=== PATIENT | male | born 1955 | race Caucasian/White ===

== ENCOUNTER 2016-09-04 21:53 | Inpatient (IN) ==
[2016-09-04] MEDS ORDERED: 0.9 % Sodium Chloride 1,000 ML IVC ONE (22:25)
--- NOTE | 2016-09-04 22:32 | Emergency Department Note ---
Disposition Clinical Impression: Lower gastrointestinal hemorrhage, Coagulopathy Anemia Qualifiers: Anemia type: other cause Other causes of anemia: other cause, not classified Qualified Code(s): D64.89 - Other specified anemias Disposition: Admitted As Inpatient Condition: Good Referrals: Speedy Dickerson MD [Primary Care Provider] - Forms: ED Satisfaction Letter Time of Disposition: 00:10 General Adult HPI - General Chief complaint: ED GI Bleed Stated complaint: "Blood in Stool/Dizzy" Time Seen by Provider: 09/04/16 22:14 Source: patient Limitations: no limitations Nursing Notes Reviewed: Yes Vital Signs Reviewed: Yes - History of Present Illness HPI Narrative: Three-day history of red blood per rectum. He said he has been seen by his primary care physician and have blood work done this morning however he just feels very weak and is short of breath he came into the emergency department. Pain Scale: 0 - Related Data Allergies Allergy/AdvReac Type Severity Reaction Status Date / Time No Known Allergies Allergy Verified 09/04/16 22:02 All systems ED: reviewed and negative except as stated. Constitutional: Reports: weakness. Denies: fever, chills Eyes: Denies: eye pain ENT ED: Denies: throat pain, congestion, dysphagia Cardiovascular: Denies: chest pain, palpitations, syncope Respiratory: Reports: dyspnea. Denies: cough, wheezes Gastrointestinal: Reports: diarrhea (Since Saturday), melena (Since Saturday), hematochezia (Since Saturday). Denies: abdominal pain, nausea, vomiting, hematemesis Genitourinary: Denies: urgency, dysuria, frequency, hematuria Musculoskeletal: Denies: back pain, neck pain Integumentary: Denies: rash, abrasion Neurological: Denies: headache, weakness Endocrine: Reports: fatigue Past Medical History - Past Medical History Medical history: Reports: cancer, diabetes, hyperlipidemia, hypertension Psychiatric history: Reports: no psych history - Social History Smoking Status: Current every day smoker Smokeless Tobacco Status: No Alcohol use: Reports: rarely Drug use: Reports: none Physical Exam - General Limitations: no limitations General appearance: alert, in no apparent distress - Head Head exam: atraumatic, normocephalic, normal inspection - Eye Eye exam: Present: normal appearance, PERRL, EOMI - ENT ENT exam: normal exam, normal oropharynx, mucous membranes moist - Neck Neck exam: Present: normal inspection, full ROM, trachea midline. Absent: tenderness, meningismus - Chest Chest inspection: Present: normal inspection, symmetric chest wall rise - Respiratory Respiratory exam: Present: normal lung sounds bilaterally. Absent: respiratory distress - Cardiovascular Cardiovascular exam: Present: normal rhythm, tachycardia, normal heart sounds - Abdominal Exam Abdominal exam: Present: soft, tenderness (To palpation of left lower quadrant.) , normal bowel sounds. Absent: distention, guarding, rebound, rigidity, organomegaly - Extremities Exam Extremities exam: Present: normal inspection, full ROM, normal capillary refill. Absent: tenderness, pedal edema - Back Exam Back exam: Present: normal inspection, full ROM. Absent: tenderness, CVA tenderness (R), CVA tenderness (L) - Neurological Exam Neurological exam: Present: alert, oriented X3 - Psychiatric Psychiatric exam: Present: normal affect, normal mood - Skin Skin exam: Present: warm, dry, intact, pallor Course Course Narrative: Male patient lying in bed in no apparent distress but is pale in color. He is tachycardic on arrival here. He states since Saturday he has had bright red blood per his rectum. He sometimes describes this as dark in color and he states that it is a loose stool. He was seen at his primary care physician yesterday and had blood work drawn drawn this morning. His hemoglobin this morning was 8 subsequently here it is 6. He denies any abdominal pain but does have pain whenever I palpate his left lower quadrant. He has bright red blood per rectum on his rectal exam. He denies any nausea or vomiting. He denies any fevers. He states he is not on any type of anticoagulation. However his INR is significantly increased. We will give patient 2 units of blood and per hospitalist recommendation we will also give 2 units of FFP. Will also give patient vitamin K. We will admit patient for his rectal bleeding as well as his significant anemia. He expresses understanding of this. - Consultations Consultation #1: Dr Johnson accepeted Pt. He stated that we need to call surgery field operations supervisor to make them aware of the Pt. Time: 00:32 Consultation #2: Spoke with Dr Atkins. She is understanding of the Pt admission. Time: 00:35 Vital Signs Temperature 97.7 F 09/04/16 22:02 Pulse Rate 116 09/04/16 22:02 Respiratory Rate 14 09/04/16 22:02 Blood Pressure 113/65 09/04/16 22:02 O2 Sat by Pulse Oximetry 96 09/04/16 22:02 Temperature 97.7 F 09/04/16 22:02 Pulse Rate 116 09/04/16 22:02 Respiratory Rate 14 09/04/16 22:02 Blood Pressure 113/65 09/04/16 22:02 O2 Sat by Pulse Oximetry 96 09/04/16 22:02 Oxygen Delivery Oxygen Delivery Room Air Medical Decision Making - Medical Records Medical records reviewed: Yes I reviewed the patient's medical records. - Lab Data Lab results reviewed: Yes I reviewed the patient's lab results. Result diagrams: 09/04/16 22:35 09/04/16 22:35 Lab Results 09/04/16 09/04/16 09/04/16 Range/Units 22:30 22:35 22:35 WBC 7.4 (4.3-11.1) K/mcL RBC 2.11 L (4.19-5.50) M/mcL Hgb 6.7 L D (12.9-16.9) g/dL Hct 19.5 L (37.5-50.1) % MCV 92.4 (83.0-100.0) fL MCH 31.8 (28.0-33.3) pg MCHC 34.4 (31.6-35.5) g/dL RDW 13.2 (11.5-14.5) % Plt Count 218 (140-400) K/mcL MPV 8.7 L (9.4-12.4) fL Immature Gran % 0.8 (0-4) % Seg Neutrophils % 78.6 % Lymphocytes % 12.7 % Monocytes % 6.7 % Eosinophils % 0.8 % Basophils % 0.4 % Neutrophils # 5.8 (1.6-8.9) K/mcL Lymphocytes # 0.9 (0.6-4.6) K/mcL Monocytes # 0.5 (0.0-1.3) K/mcL Eosinophils # 0.1 (0.0-0.6) K/mcL Basophils # 0.0 (0.0-0.2) K/mcL Immature Plt Fraction 1.4 (1.1-6.1) % PT 134.1 H* (9.4-12.1) Seconds INR 11.5 H* APTT 73.5 H (26.0-36.0) Seconds Sodium (136-145) mEq/L Potassium (3.5-4.5) mEq/L Chloride (98-109) mEq/L Carbon Dioxide (19-29) mEq/L BUN (8-26) mg/dL Creatinine (0.72-1.25) mg/dL Est GFR ( Amer) (> 60) Est GFR (Non-Af Amer) (> 60) BUN/Creatinine Ratio (6-26) Glucose (70-99) mg/dL Calculated Osmolality (280-300) Calcium (8.6-10.8) mg/dL Phosphorus (2.3-4.7) mg/dL Magnesium (1.6-2.6) mg/dL Total Bilirubin 0.2 (0.2-1.2) mg/dL Direct Bilirubin 0.1 (0.0-0.5) mg/dL Indirect Bilirubin 0.1 (0.0-1.2) mg/dL AST 18 (5-34) Units/L ALT 15 (0-55) Units/L Alkaline Phosphatase 27 L (38-126) Units/L Troponin I (0-0.03) ng/mL Serum Total Protein 5.3 L (6.0-8.3) g/dL Albumin 3.4 L (3.5-5.0) g/dL Globulin 1.9 L (2.4-3.5) g/dL Albumin/Globulin Ratio 1.8 (1.1-2.2) Stool Occult Blood (Negative) Blood Type Antibody Screen Crossmatch 09/04/16 09/04/16 09/04/16 Range/Units 22:35 22:35 22:35 WBC (4.3-11.1) K/mcL RBC (4.19-5.50) M/mcL Hgb (12.9-16.9) g/dL Hct (37.5-50.1) % MCV (83.0-100.0) fL MCH (28.0-33.3) pg MCHC (31.6-35.5) g/dL RDW (11.5-14.5) % Plt Count (140-400) K/mcL MPV (9.4-12.4) fL Immature Gran % (0-4) % Seg Neutrophils % % Lymphocytes % % Monocytes % % Eosinophils % % Basophils % % Neutrophils # (1.6-8.9) K/mcL Lymphocytes # (0.6-4.6) K/mcL Monocytes # (0.0-1.3) K/mcL Eosinophils # (0.0-0.6) K/mcL Basophils # (0.0-0.2) K/mcL Immature Plt Fraction (1.1-6.1) % PT (9.4-12.1) Seconds INR APTT (26.0-36.0) Seconds Sodium 138 (136-145) mEq/L Potassium 4.0 (3.5-4.5) mEq/L Chloride 108 (98-109) mEq/L Carbon Dioxide 22 (19-29) mEq/L BUN 19 (8-26) mg/dL Creatinine 0.95 (0.72-1.25) mg/dL Est GFR ( Amer) > 60 (> 60) Est GFR (Non-Af Amer) > 60 (> 60) BUN/Creatinine Ratio 20 (6-26) Glucose 240 H (70-99) mg/dL Calculated Osmolality 296 (280-300) Calcium 7.9 L (8.6-10.8) mg/dL Phosphorus 1.8 L (2.3-4.7) mg/dL Magnesium 1.7 (1.6-2.6) mg/dL Total Bilirubin (0.2-1.2) mg/dL Direct Bilirubin (0.0-0.5) mg/dL Indirect Bilirubin (0.0-1.2) mg/dL AST (5-34) Units/L ALT (0-55) Units/L Alkaline Phosphatase (38-126) Units/L Troponin I 0.00 (0-0.03) ng/mL Serum Total Protein (6.0-8.3) g/dL Albumin (3.5-5.0) g/dL Globulin (2.4-3.5) g/dL Albumin/Globulin Ratio (1.1-2.2) Stool Occult Blood (Negative) Blood Type A POSITIVE Antibody Screen NEGATIVE Crossmatch See Detail 09/04/16 09/04/16 Range/Units 23:20 23:20 WBC (4.3-11.1) K/mcL RBC (4.19-5.50) M/mcL Hgb (12.9-16.9) g/dL Hct (37.5-50.1) % MCV (83.0-100.0) fL MCH (28.0-33.3) pg MCHC (31.6-35.5) g/dL RDW (11.5-14.5) % Plt Count (140-400) K/mcL MPV (9.4-12.4) fL Immature Gran % (0-4) % Seg Neutrophils % % Lymphocytes % % Monocytes % % Eosinophils % % Basophils % % Neutrophils # (1.6-8.9) K/mcL Lymphocytes # (0.6-4.6) K/mcL Monocytes # (0.0-1.3) K/mcL Eosinophils # (0.0-0.6) K/mcL Basophils # (0.0-0.2) K/mcL Immature Plt Fraction (1.1-6.1) % PT 141.3 H* (9.4-12.1) Seconds INR 12.1 H* APTT (26.0-36.0) Seconds Sodium (136-145) mEq/L Potassium (3.5-4.5) mEq/L Chloride (98-109) mEq/L Carbon Dioxide (19-29) mEq/L BUN (8-26) mg/dL Creatinine (0.72-1.25) mg/dL Est GFR ( Amer) (> 60) Est GFR (Non-Af Amer) (> 60) BUN/Creatinine Ratio (6-26) Glucose (70-99) mg/dL Calculated Osmolality (280-300) Calcium (8.6-10.8) mg/dL Phosphorus (2.3-4.7) mg/dL Magnesium (1.6-2.6) mg/dL Total Bilirubin (0.2-1.2) mg/dL Direct Bilirubin (0.0-0.5) mg/dL Indirect Bilirubin (0.0-1.2) mg/dL AST (5-34) Units/L ALT (0-55) Units/L Alkaline Phosphatase (38-126) Units/L Troponin I (0-0.03) ng/mL Serum Total Protein (6.0-8.3) g/dL Albumin (3.5-5.0) g/dL Globulin (2.4-3.5) g/dL Albumin/Globulin Ratio (1.1-2.2) Stool Occult Blood Positive A (Negative) Blood Type Antibody Screen Crossmatch - Radiology Data Radiology results reviewed: Yes I reviewed the patient's radiology results. Abdomen/Pelvis CT 09/04/16 22:32 IMPRESSION: 1. Diverticulosis without scan evidence for diverticulitis. 2. Grossly stable heterogeneous mass projecting anteriorly from the right kidney. 3. 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 D/ / Billy Houston MD / Billy Houston MD Interpreting Provider: Billy Houston MD - EKG Data EKG #1 EKG attestation: Yes I reviewed and interpreted this EKG. EKG results narrative: Sinus tachycardia at a rate of 109. [place] interval is 123. QRS duration is 76. QT is 327. QTC is 391. No signs of acute ischemia. No significant changes from previous EKG dated 10/28/2014. Critical Care Time Total Critical Care Time: 35 Attestation: The high probability of a clinically significant, sudden or life threatening deterioration of the [GI/heme] system(s) required my full and direct attention, intervention and personal management. The aggregate critical care time was [35] minutes. This time is in addition to time spent performing reported procedures but includes the following: [X] Data Review and interpretation [X] Patient assessment and monitoring of vital signs [X] Documentation [X] Medication orders and management Attestation Statement - Attestation Attestation: I personally interviewed and examined this patient and my medical decision- making was reviewed and discussed with the ED Resident Physician, Dr. De Guzman. I agree with the documented findings, disposition and treatment plan as described in the documentation. Patient is a 61-year-old white male who presents to the emergency department with generalized weakness, lightheadedness, and blood in his stool. Patient states he first noticed blood in his stool on Saturday over the weekend associated with a loose bowel movement. Patient describes initial stool changes as dark blood somewhat dark red in color. Patient was not having any other associated symptoms on Saturday with this, denies any abdominal pain or cramping, no fevers or chills, no nausea vomiting, no lightheadedness or weakness. Symptoms continued throughout the weekend with gradual increase in stool output with more diarrhea associated stools which are grossly bloody. Patient was seen on Saturday morning by his family doctor for these changes and had labs is on an outpatient basis ordered which were performed this morning. He was also told that he would be referred to Dr. Gar, for GI evaluation of lower GI bleeding. Patient states he has never contacted by Dr. Alexis's office up to this point and was feeling worse and over the past 12 hours has had gradually worsening lightheadedness with standing overall weakness and fatigue and skin very pale. She denies any chest pain or pressure no shortness of breath no syncopal episodes at home. Patient arrives with tachycardia at rest but stable blood pressure. No evidence of hypoxia or dyspnea. He is placed on a monitor IV saline was established and patient given a fluid bolus on arrival with 2 large-bore IV placed. Labs were drawn and sent and upon review in the system we did find his labs are drawn earlier today showing hemoglobin of 8.7. No prior history of any GI bleeding in the past last had a colonoscopy 6 years ago which was negative for any abnormal findings and this was more of a screening colonoscopy area she is not on any blood thinners. Patient however had any history of GI bleeding or need to see GI in the past. Repeat H&H here shows hemoglobin of 6.7, type and cross was ordered for 2 units to be transfused in the ED, patient consented to this at bedside. I did personally review pros and cons of transfusion and patient does agree to go ahead with transfusion here in the ED. Currently we are awaiting remainder of labs and CT imaging and patient will be admitted for lower GI bleeding Patient found to be coagulopathic with an INR of 12. Patient is not on any blood thinners. Unclear to the etiology of his elevated INR. We initiated vitamin K here in the emergency department and will discuss whether the admitting physician would like any additional medications administered for his elevated INR. Patient remains he was chemically stable with stable blood pressure. He is receiving 2 units packed red blood cells at bedside. Transfusion is without difficulty. Patient will be admitted for further evaluation for lower GI bleeding, coagulopathy, and anemia secondary to blood loss.
[2016-09-04 22:45] LABS: Basophils % 0.4 %; Eosinophils # 0.1 K/mcL (0.0-0.6); Eosinophils % 0.8 %; Hematocrit 19.5 % (37.5-50.1); Immature Granulocytes % 0.8 % (0-4); Immature Platelets 1.4 % (1.1-6.1); Lymphocytes # 0.9 K/mcL (0.6-4.6); Lymphocytes % 12.7 %; Mean Corpuscular HGB Conc 34.4 g/dL (31.6-35.5); Mean Corpuscular Hemoglobin 31.8 pg (28.0-33.3); Mean Corpuscular Volume 92.4 fL (83.0-100.0); Mean Platelet Volume 8.7 fL (9.4-12.4); Monocytes # 0.5 K/mcL (0.0-1.3); Monocytes % 6.7 %; Neutrophils # 5.8 K/mcL (1.6-8.9); Platelet Count 218 K/mcL (140-400); Red Blood Count 2.11 M/mcL (4.19-5.50); Red Cell Distribution Width 13.2 % (11.5-14.5); Segmented Neutrophils % 78.6 %
[2016-09-04 22:46] LABS: Hemoglobin 6.7 g/dL (12.9-16.9)
[2016-09-04 22:53] LABS: Activated Partial Thrombo Time 73.5 Seconds (26.0-36.0)
[2016-09-04 23:02] LABS: Blood Urea Nitrogen 19 mg/dL (8-26); Chloride 108 mEq/L (98-109); Phosphorous 1.8 mg/dL (2.3-4.7); Sodium 138 mEq/L (136-145)
[2016-09-04 23:04] LABS: INR 11.5; Prothrombin Time 134.1 Seconds (9.4-12.1)
[2016-09-04 23:15] LABS: BUN/Creatinine Ratio 20 (6-26); Calcium 7.9 mg/dL (8.6-10.8); Carbon Dioxide 22 mEq/L (19-29); Glucose 240 mg/dL (70-99); Osmolality,Calculated 296 (280-300); eGFR For African Americans > 60 (> 60); eGFR For Non-African Americans > 60 (> 60)
[2016-09-04 23:16] LABS: Magnesium 1.7 mg/dL (1.6-2.6)
[2016-09-04 23:30] LABS: Albumin 3.4 g/dL (3.5-5.0); Albumin/Globulin Ratio 1.8 (1.1-2.2); Bilirubin,Direct 0.1 mg/dL (0.0-0.5); Bilirubin,Indirect 0.1 mg/dL (0.0-1.2); Bilirubin,Total 0.2 mg/dL (0.2-1.2); Globulin 1.9 g/dL (2.4-3.5); Total Protein 5.3 g/dL (6.0-8.3)
[2016-09-04 23:50] LABS: Prothrombin Time 141.3 Seconds (9.4-12.1)
[2016-09-04 23:51] LABS: INR 12.1
[2016-09-05] MEDS ORDERED: 0.9 % Sodium Chloride 250 ML ONE ×4 (02:31→22:09)
[2016-09-05] MEDS ORDERED: Naloxone 0.4 MG/ML INJ IVP PRN (02:50)
[2016-09-05] MEDS ORDERED: *HR* Phytonadione 5 MG TABLET PO STA (03:00)
--- NOTE | 2016-09-05 03:07 | Internal Med History&Physical ---
Date of Encounter: 09/05/16 Time of Encounter: 03:07 Assessment and Plan (1) Hematochezia Current visit: Yes Status: Acute Suspected to be due to diverticular bleed. Patient has coagulopathy with elevated PT and PTT. Patient denies using any anticoagulant medication at home. Will correct the coagulopathy with vitamin K and FFP. Consult Dr Atkins, for possible colonoscopy (2) Acute blood loss anemia Current visit: Yes Status: Acute Pt has hemoglobin 6.7 (8.3 this morning and base line of 14-15 in the past). 2 units of PRBC transfusion ordered. Monitor H&H and transfuse to keep H&H at or above 8&24. (3) Coagulopathy Current visit: Yes Status: Acute Pt is not known to be on anticoagulation, but PT and PTT are elevated. Correct with vitamin K and FFP. Hematology / oncology consultation (4) Diabetes mellitus Current visit: Yes Status: Acute Hold metformin. Start sliding scale insulin Qualifiers: Diabetes mellitus type: type 2 Diabetes mellitus complication status: with unspecified complications Diabetes mellitus alf insulin use: without terminal operator use Qualified Code(s): E11.8 - Type 2 diabetes mellitus with unspecified complications (5) Hypertension Current visit: Yes Status: Chronic Continue home medications Qualifiers: Hypertension type: essential hypertension Qualified Code(s): I10 - Essential (primary) hypertension (6) Nicotine dependence Current visit: Yes Status: Acute Pt does not want nicotine patches at this time. wllling to quit Qualifiers: Nicotine product type: cigarettes Substance use status: unspecified nicotine-induced disorder Qualified Code(s): F17.219 - Nicotine dependence, cigarettes, with unspecified nicotine-induced disorders Internal Medicine - H&P: HPI Chief complaint: Rectal bleeding Admitted From: Emergency Dept Plans for Post Hospital Care: Home History of present illness: Mr. Dasilva is a 61 year old male past medical history significant for hypertension, diabetes, hyperlipidemia, neck cancer status post chemotherapy radiation. He presents to the emergency department with four-day history of rectal bleeding. Initially started as dark blood and subsequently had the bright red blood per rectum. Multiple times during the day, not associated with stool. Denies blood clots. Reports feeling dizzy and lightheaded when he is sitting or standing. No history of loss of consciousness. He reports some heavy breathing. Denies chest pain. No nausea, vomiting, abdominal pain, cough, expectoration, fever, chills. He denies dysuria or hematuria. He was evaluated in the emergency department and was noted to have INR of 12.5 (denies using anticoagulants), hemoglobin 6.7 (8.3 this morning and base line of 14-15 in the past). ER physician discussed with surgeon Dr Atkins and admitted to the hospitalist service for further w/u and management. Pt apparently had colonoscopy about 5 years ago which showed polyps Past Med Surg Social Fam HX - Past Medical History Medical history: cancer, diabetes, hyperlipidemia, hypertension Psychiatric history: no psych history - Social History Smoking Status: Current every day smoker Smokeless Tobacco Status: No Alcohol use: occasionally Drug use: none - Family History Father Name: Sriram Dasilva Living Status: Age at : 77 Hx Family Cardiac Disorders: No Hx Family Respiratory Disorders: No Hx Family Cancer: No Hx Family GI Disorders: No Hx Family Genitourinary Disorders: Yes Hx Family Endocrine Disorder: No Hx Family Musculoskeletal Disorders: No Hx Family Neuromuscular Disorders: No Hx Family Neurologic Disorders: No Hx Family HEENT Disorders: No Hx Family Autoimmune Disorders: No Hx Family Reproductive Disorders: No Hx Family Psychosocial Disorders: No Hx Family Medical Disorders: No Internal Medicine - H&P: Meds Alprazolam [Xanax 0.5 MG Tablet] 0.5 mg PO QID PRN 09/05/16 [History] Fenofibrate Nanocrystallized [Fenofibrate] 145 mg PO DAILY 09/05/16 [History] Gabapentin [Gabapentin] 900 mg PO TID 09/05/16 [History] HYDROcodone/Acet 5/325 mg [[place] 5-325 mg] 1 - 2 tab PO Q6H PRN 09/05/16 [ History] Lisinopril [Zestril] 10 mg PO DAILY 09/05/16 [History] Loratadine [Allergy Relief] 10 mg PO DAILY 09/05/16 [History] Metformin HCl [Metformin HCl ER] 1,500 mg PO DAILY 09/05/16 [History] Omeprazole [PriLOSEC] 20 mg PO DAILY 09/05/16 [History] Simvastatin [Simvastatin] 80 mg PO DAILY 09/05/16 [History] Tamsulosin [Flomax] 0.4 mg PO DAILY 09/05/16 [History] TraZODone 100 mg PO HS 09/05/16 [History] Allergies No Known Allergies Allergy (Verified 09/04/16 22:02) All Systems PM: A 10-system review of systems was performed and is negative for pertinent findings except as documented above in the HPI. - Constitutional Vitals: Temp Pulse Resp BP Pulse Ox 97.8 F 108 19 121/73 100 09/05/16 02:32 09/05/16 02:32 09/05/16 02:32 09/05/16 02:32 09/05/16 02:32 Exam: General: Not in acute distress at the time of my evaluation HEENT: Oral mucosa is moist. conjunctival palor present. No scleral icterus Neck: No obvious neck swellings Lungs: Clear to auscultation Cardiac: Regular rate and rhythm. No significant murmurs Abdomen: Soft, non tender. Bowel sounds present Genitourinary: No holm catheter Neurological: Alert and oriented. No gross localizing deficits Psych: Not aggressive or agitated Extremities: no significant leg edema Skin: No generalized rash Internal Med - H&P Results - Labs CBC & Chem 7: 09/04/16 22:35 09/04/16 22:35 - Impressions ITS Impressions Abdomen/Pelvis CT 09/04/16 22:32 IMPRESSION: 1. Diverticulosis without scan evidence for diverticulitis. 2. Grossly stable heterogeneous mass projecting anteriorly from the right kidney. 3. 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 D/ / Billy Houston MD / Billy Houston MD Interpreting Provider: Billy Houston MD
[2016-09-05] MEDS: traZODone 50 MG TABLET PO SCH ×2 (03:15→21:07)
[2016-09-05] MEDS ORDERED: 0.9 % Sodium Chloride 500 ML ONE (05:38)
[2016-09-05] MEDS ORDERED: *HR* HYDROcodone/Acet 5/325 mg TABLET PO PRN (08:09)
[2016-09-05] MEDS ORDERED: *HR* Dextrose 50 % in Water (Syg) 50 ML SYRINGE IVP PRN (08:12)
[2016-09-05] MEDS ORDERED: D5% in Water 1,000 ML IV PRN (08:12)
[2016-09-05] MEDS ORDERED: Dextrose Gel 15 GM PO PRN ×2 (08:12)
--- NOTE | 2016-09-05 08:19 | General Surgery Consult Note ---
<Jim Hernandez - Last Filed: 09/05/16 11:54> Date of Encounter: 09/05/16 Time of Encounter: 07:20 Assessment and Plan (1) Hematochezia Current Visit: Yes Status: Acute CT demonstrated diverticulosis without evidence of diverticulitis. Repeat INR was 1.8 Clear liquids with NPO at midnight. Miralax prep ordered. Colonoscopy tomorrow given the prep is adequate. (2) Coagulopathy Current Visit: Yes Status: Acute Patient denies use of anticoagulants. Management per medicine team. Heme onc consulted. (3) Acute blood loss anemia Current Visit: Yes Status: Acute Management per medicine team. 2 units PRBCs ordered. Continue to follow H/H closely. 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 The patient reports that he started having dark black stools that were somewhat loose starting this past 09/01/16. He reports having multiple bowel movements that were quite large similar in description to this in the following days, which progressed to bright red blood starting on Saturday09/03/16. The patient has associated dizziness and fatigue since the onset of these symptoms. He denies any history of similar episodes and has never had problems with bleeding in the past. He denies easy bruisability, and states he has never been on blood thinners. He additionally states he does not even take aspirin. His INR was found to be 12.1 while in the emergency department and he had a hemoglobin as low as 6.7. He has no history of anemia. The patient reports that he has been diagnosed with hepatitis B, which was confirmed with outpatient records. He states he continues to drink alcohol with 3-4 drinks of beer, which he will have approximately 2 times a week. He has had one colonoscopy a little over 5 years ago, which did not demonstrate any bleeding at that time, but he did have some polyps. He has never had an EGD. Past Med Surg Social Fam HX - Past Medical History Medical history: cancer (lymph node in neck), diabetes, hepatitis (B), hyperlipidemia, hypertension Psychiatric history: no psych history - Past Surgical History Surgical History: cancer surgery (Lymph node removal from the neck), other (PEG tube placement, tonsillectomy) - Social History Smoking Status: Current every day smoker Smokeless Tobacco Status: No Alcohol use: occasionally Drug use: marijuana - Family History Father Name: Sriram Dasilva Living Status: Age at : 77 Hx Family Cardiac Disorders: No Hx Family Respiratory Disorders: No Hx Family Cancer: No Hx Family GI Disorders: No Hx Family Genitourinary Disorders: Yes Hx Family Endocrine Disorder: No Hx Family Musculoskeletal Disorders: No Hx Family Neuromuscular Disorders: No Hx Family Neurologic Disorders: No Hx Family HEENT Disorders: No Hx Family Autoimmune Disorders: No Hx Family Reproductive Disorders: No Hx Family Psychosocial Disorders: No Hx Family Medical Disorders: No Medications and Allergies Alprazolam [Xanax 0.5 MG Tablet] 0.5 mg PO QID PRN 09/05/16 [History] Fenofibrate Nanocrystallized [Fenofibrate] 145 mg PO DAILY 09/05/16 [History] Gabapentin [Gabapentin] 900 mg PO TID 09/05/16 [History] HYDROcodone/Acet 5/325 mg [[place] 5-325 mg] 1 - 2 tab PO Q6H PRN 09/05/16 [ History] Lisinopril [Zestril] 10 mg PO DAILY 09/05/16 [History] Loratadine [Allergy Relief] 10 mg PO DAILY 09/05/16 [History] Metformin HCl [Metformin HCl ER] 1,500 mg PO DAILY 09/05/16 [History] Omeprazole [PriLOSEC] 20 mg PO DAILY 09/05/16 [History] Simvastatin [Simvastatin] 80 mg PO DAILY 09/05/16 [History] Tamsulosin [Flomax] 0.4 mg PO DAILY 09/05/16 [History] TraZODone 100 mg PO HS 09/05/16 [History] Allergies No Known Allergies Allergy (Verified 09/04/16 22:02) Review of Systems All systems PM: A 10-system review of systems was performed and is negative for pertinent findings except as documented above in the HPI. - Constitutional fatigue, no anorexia, no fever(s), no weakness - EENT Nose, mouth and throat: dizziness, no epistaxis, no headache(s), no sore throat - Cardiovascular no chest pain, no dyspnea, no edema, no syncope - Respiratory no cough, no dyspnea, no hemoptysis - Gastrointestinal hematochezia, melena, no abdominal pain, no constipation, no heartburn, no hematemesis, no nausea, no vomiting - Genitourinary no dysuria, no hematuria - Musculoskeletal neck pain (chronic, spasms), no numbness, no tingling - Integumentary no unusual bruising, no jaundice - Neurological dizziness, no focal weakness, no headache(s), no tingling - Hematologic/Lymphatic no easy bleeding, no easy bruising General Surgery Exam Initial Vital Signs Temp Pulse Resp BP Pulse Ox 97.7 F 116 14 113/65 96 09/04/16 22:02 09/04/16 22:02 09/04/16 22:02 09/04/16 22:02 09/04/16 22:02 - General physical appearance well developed, well nourished, no distress. negative: jaundice - Eyes normal ocular movement - ENT normal mucosa, atraumatic, normocephalic - Neck no masses, trachea midline, no lymphadectomy - Respiratory normal respiratory effort, clear to auscultation - Cardiovascular Cardiovascular exam: Present: RRR, tachycardia, no murmurs/rubs/gallops - Abdomen Abdomen general surgery: Present: bowel sounds present, soft, non tender. Absent: distended - Integumentary Integumentary general surgery: Present: warm and dry - Neurologic Present: CN 2-12 grossly intact - Musculoskeletal Present: normal posture - Psychiatric Psychiatric general surgery: Present: appropriate, oriented to person, oriented to place, oriented to time, speech is normal, memory intact Exam Initial Vital Signs Temp Pulse Resp BP Pulse Ox 97.7 F 116 14 113/65 96 09/04/16 22:02 09/04/16 22:02 09/04/16 22:02 09/04/16 22:02 09/04/16 22:02 Results - Labs 09/05/16 09:59 09/05/16 09:59 Abnormal lab results RBC 2.11 M/mcL (4.19-5.50) L 09/04/16 22:35 Hgb 6.7 g/dL (12.9-16.9) L D 03/07/17 22:35 Hct 19.5 % (37.5-50.1) L 09/04/16 22:35 MPV 8.7 fL (9.4-12.4) L 09/04/16 22:35 PT 141.3 Seconds (9.4-12.1) H* 09/04/16 23:20 INR 12.1 H* 09/04/16 23:20 APTT 73.5 Seconds (26.0-36.0) H 09/04/16 22:35 Glucose 240 mg/dL (70-99) H 09/04/16 22:35 POC Glucose 193 (58-89) H 09/05/16 02:59 Calcium 7.9 mg/dL (8.6-10.8) L 09/04/16 22:35 Phosphorus 1.8 mg/dL (2.3-4.7) L 09/04/16 22:35 Alkaline Phosphatase 27 Units/L (38-126) L 09/04/16 22:30 Serum Total Protein 5.3 g/dL (6.0-8.3) L 09/04/16 22:30 Albumin 3.4 g/dL (3.5-5.0) L 09/04/16 22:30 Globulin 1.9 g/dL (2.4-3.5) L 09/04/16 22:30 Stool Occult Blood Positive (Negative) A 09/04/16 23:20 All other labs normal. Consult Discharge Plan - Plan Referrals: Speedy Dickerson MD [Primary Care Provider] - (SENT WEB REQUEST ON 09-05-16 @ [id number]) - Attending Attestation I examined this patient and my medical decision-making was reviewed with the SUPPLY CHAIN BUSINESS ANALYST/PA/Advanced Practice Nurse/Resident Physician. I agree with the documented findings, disposition and treatment plan as described except to the extent set forth below. <Jody Atkins - Last Filed: 09/06/16 17:28> Time of Encounter: 16:30 Assessment and Plan (1) Acute blood loss anemia Current Visit: Yes Status: Acute (2) Melena Current Visit: Yes Status: Acute discussed egd/colonoscopy with patient and they wish to proceed inr reversed Review of Systems All systems PM: A 10-system review of systems was performed and is negative for pertinent findings except as documented above in the HPI. General Surgery Exam Initial Vital Signs Temp Pulse Resp BP Pulse Ox 97.7 F 116 14 113/65 96 09/04/16 22:02 09/04/16 22:02 09/04/16 22:02 09/04/16 22:02 09/04/16 22:02 - General physical appearance well developed, well nourished, no distress, no pain - Eyes PERRL, normal ocular movement - ENT normal mucosa, normocephalic - Neck trachea midline - Respiratory normal expansion, clear to auscultation - Cardiovascular Cardiovascular exam: Present: RRR - Abdomen Abdomen general surgery: Present: bowel sounds present, soft, non tender - Integumentary Integumentary general surgery: Present: warm and dry, no abnormal pigmentation - Neurologic Present: CN 2-12 grossly intact - Musculoskeletal Present: normal gait, normal posture - Psychiatric Psychiatric general surgery: Present: A&Ox3, speech is normal Exam Initial Vital Signs Temp Pulse Resp BP Pulse Ox 97.7 F 116 14 113/65 96 09/04/16 22:02 09/04/16 22:02 09/04/16 22:02 09/04/16 22:02 09/04/16 22:02 Results - Labs 09/06/16 11:51 09/06/16 03:45 Abnormal lab results RBC 2.75 M/mcL (4.19-5.50) L 09/06/16 03:45 Hgb 10.1 g/dL (12.9-16.9) L D 09/06/16 11:51 Hct 30.3 % (37.5-50.1) L 09/06/16 11:51 MPV 8.7 fL (9.4-12.4) L 09/06/16 03:45 PT 20.2 Seconds (9.4-12.1) H 09/06/16 03:45 APTT 38.2 Seconds (26.0-36.0) H 09/05/16 09:59 Chloride 112 mEq/L (98-109) H 09/06/16 03:45 BUN 7 mg/dL (8-26) L 09/06/16 03:45 Glucose 129 mg/dL (70-99) H 09/06/16 03:45 POC Glucose 161 (58-89) H 09/05/16 22:14 Calcium 7.6 mg/dL (8.6-10.8) L 09/06/16 03:45 Phosphorus 2.1 mg/dL (2.3-4.7) L 09/06/16 03:45 Alkaline Phosphatase 27 Units/L (38-126) L 09/04/16 22:30 Serum Total Protein 5.3 g/dL (6.0-8.3) L 09/04/16 22:30 Albumin 3.4 g/dL (3.5-5.0) L 09/04/16 22:30 Globulin 1.9 g/dL (2.4-3.5) L 09/04/16 22:30 Stool Occult Blood Positive (Negative) A 09/05/16 07:45 Diabetes panel 09/06/16 Range/Units 03:45 Sodium 139 (136-145) mEq/L Potassium 3.9 (3.5-4.5) mEq/L Chloride 112 H (98-109) mEq/L Carbon Dioxide 25 (19-29) mEq/L BUN 7 L (8-26) mg/dL Creatinine 0.77 (0.72-1.25) mg/dL Glucose 129 H (70-99) mg/dL Calcium 7.6 L (8.6-10.8) mg/dL Calcium panel 09/06/16 Range/Units 03:45 Calcium 7.6 L (8.6-10.8) mg/dL Phosphorus 2.1 L (2.3-4.7) mg/dL Pituitary panel 09/06/16 Range/Units 03:45 Sodium 139 (136-145) mEq/L Potassium 3.9 (3.5-4.5) mEq/L Chloride 112 H (98-109) mEq/L Carbon Dioxide 25 (19-29) mEq/L BUN 7 L (8-26) mg/dL Creatinine 0.77 (0.72-1.25) mg/dL Glucose 129 H (70-99) mg/dL Calcium 7.6 L (8.6-10.8) mg/dL Adrenal panel 09/06/16 Range/Units 03:45 Sodium 139 (136-145) mEq/L Potassium 3.9 (3.5-4.5) mEq/L Chloride 112 H (98-109) mEq/L Carbon Dioxide 25 (19-29) mEq/L BUN 7 L (8-26) mg/dL Creatinine 0.77 (0.72-1.25) mg/dL Glucose 129 H (70-99) mg/dL Calcium 7.6 L (8.6-10.8) mg/dL All other labs normal. - Attending Attestation I examined this patient and my medical decision-making was reviewed with the SUPPLY CHAIN BUSINESS ANALYST/PA/Advanced Practice Nurse/Resident Physician. I agree with the documented findings, disposition and treatment plan as described except to the extent set forth below.
[2016-09-05] MEDS ORDERED: Fenofibrate 54 MG TABLET PO SCH (09:00)
[2016-09-05] MEDS: Insulin LISPRO 300 UNITS/3 ML VIAL SQ SCH ×4 (09:45→22:22)
[2016-09-05] MEDS ORDERED: Polyethylene Glycol 3350 255 GM POWDER PO ONE (09:47)
[2016-09-05] MEDS: Gabapentin 300 MG CAPSULE PO SCH ×3 (09:49→21:05)
[2016-09-05 10:07] LABS: Basophils % 0.4 %; Eosinophils % 0.6 %; Hematocrit 21.4 % (37.5-50.1); Hemoglobin 7.3 g/dL (12.9-16.9); Immature Granulocytes % 0.6 % (0-4); Lymphocytes # 1.3 K/mcL (0.6-4.6); Lymphocytes % 18.4 %; Mean Corpuscular HGB Conc 34.1 g/dL (31.6-35.5); Mean Corpuscular Hemoglobin 31.1 pg (28.0-33.3); Mean Corpuscular Volume 91.1 fL (83.0-100.0); Mean Platelet Volume 8.8 fL (9.4-12.4); Monocytes # 0.7 K/mcL (0.0-1.3); Monocytes % 9.6 %; Neutrophils # 5.1 K/mcL (1.6-8.9); Platelet Count 156 K/mcL (140-400); Red Blood Count 2.35 M/mcL (4.19-5.50); Red Cell Distribution Width 13.1 % (11.5-14.5); Segmented Neutrophils % 70.4 %
[2016-09-05 10:14] LABS: Activated Partial Thrombo Time 38.2 Seconds (26.0-36.0)
[2016-09-05 10:15] LABS: INR 1.8
[2016-09-05 10:19] LABS: BUN/Creatinine Ratio 15 (6-26); Blood Urea Nitrogen 12 mg/dL (8-26); Calcium 7.8 mg/dL (8.6-10.8); Carbon Dioxide 24 mEq/L (19-29); Chloride 110 mEq/L (98-109); Glucose 136 mg/dL (70-99); Magnesium 1.9 mg/dL (1.6-2.6); Osmolality,Calculated 290 (280-300); Phosphorous 1.9 mg/dL (2.3-4.7); Potassium 4.1 mEq/L (3.5-4.5); Sodium 139 mEq/L (136-145); eGFR For African Americans > 60 (> 60); eGFR For Non-African Americans > 60 (> 60)
[2016-09-05] MEDS: ALPRAZolam 0.5 MG TABLET PO PRN ×2 (11:44→22:21)
--- NOTE | 2016-09-05 11:53 | Internal Med Progress Note ---
Date of Encounter: 09/05/16 Time of Encounter: 11:50 - Assessment and plan (1) Hematochezia Current Visit: Yes Status: Acute Assessment and plan: Acute blood loss anemia secondary to hematochezia CT abdomen and pelvis shows diverticulosis without evidence of diverticulitis Repeat INR 1.8 Status post 3 units FFP transfusion Status post 2 unit RBC transfusion however active bleeding and persistently low hemoglobin, we will transfuse 2 more units PRBCs Continue to monitor H&H every 8 hours Surgery consultation appreciated Patient to undergo colonoscopy tomorrow, bowel prep initiated. Clear liquid diet today and nothing by mouth after midnight (2) Acute blood loss anemia Current Visit: Yes Status: Acute Assessment and plan: As listed above (3) Coagulopathy Current Visit: Yes Status: Acute Assessment and plan: Reversed status post 3 unit FFP transfusion Repeat INR 1.8 Patient will need further hematological workup, possibly as outpatient once acute issue has been resolved (4) Diabetes mellitus Current Visit: Yes Status: Acute Assessment and plan: Hold oral antihyperglycemic agents at this time Started insulin sliding scale algorithm Continue to monitor fingerstick glucose and blood glucose Qualifiers: Diabetes mellitus type: type 2 Diabetes mellitus complication status: with unspecified complications Diabetes mellitus terminal press operator insulin use: without terminal press operator use Qualified Code(s): E11.8 - Type 2 diabetes mellitus with unspecified complications (5) Hypertension Current Visit: Yes Status: Chronic Assessment and plan: BP within acceptable range Continue home medications Qualifiers: Hypertension type: essential hypertension Qualified Code(s): I10 - Essential (primary) hypertension (6) Tobacco abuse Current Visit: Yes Status: Acute Assessment and plan: Smoking cessation counseling provided Patient not ready to quit at this time Refused nicotine replacement therapy (7) BPH (benign prostatic hyperplasia) Current Visit: Yes Status: Chronic Assessment and plan: Continue home medications Qualifiers: Prostatic enlargement morphology: unspecified morphology Lower urinary tract symptom presence: presence of symptoms unspecified Qualified Code(s): N40.0 - Benign prostatic hyperplasia without lower urinary tract symptoms - Subjective Interval history: Patient is a 61-year-old male who is admitted for symptomatic anemia secondary to acute blood loss anemia/lower GI bleed. Patient seen and examined at bedside. Resting in bed and reports of having a recurrent episode of rectal bleed shortly before I evaluated the patient. Status post 2 unit PRBC transfusion however he continues to have active bleeding. States this episode first started about a week ago and has gradually worsened. Denies any shortness of breath or chest pain at this time. Patient is hemodynamically stable at this time. - Constitutional Vitals: Temp Pulse Resp BP Pulse Ox 98.3 F 80 16 128/72 99 09/05/16 08:35 09/05/16 08:35 09/05/16 08:35 09/05/16 08:35 09/05/16 08:35 General appearance: Present: cooperative, A&O X 3, no acute distress, obese, answers questions appropriately - Head Head exam: Present: atraumatic, normocephalic - Eye Eye exam: Present: normal appearance, conjuntiva pink, sclera anicteric - Respiratory Respiratory exam: Present: CTAB. Absent: respiratory distress, wheezes - Cardiovascular Cardiovascular exam: Present: RRR, +S1, +S2 - GI/Abdominal GI/Abdominal exam: Present: normal bowel sounds, soft. Absent: distended, tenderness - Extremities Exam Extremities exam: Present: warm, radial pulses palpable and symetrical. Absent : calf tenderness, pedal edema - Neurological Exam Neurological exam: Present: alert, oriented X3 - Psychiatric Psychiatric exam: Present: normal affect, normal mood Internal Medicine: Result - Labs CBC & Chem 7: 09/05/16 09:59 09/05/16 09:59 Labs: Short CBC 09/05/16 Range/Units 09:59 WBC 7.2 (4.3-11.1) K/mcL Hgb 7.3 L (12.9-16.9) g/dL Hct 21.4 L (37.5-50.1) % Plt Count 156 (140-400) K/mcL Neutrophils # 5.1 (1.6-8.9) K/mcL BMP 09/05/16 09:59 Sodium 139 Potassium 4.1 Chloride 110 H Carbon Dioxide 24 BUN 12 Creatinine 0.78 Glucose 136 H Calcium 7.8 L - ABG Interpretation ABG results: PT/INR, D-dimer PT 20.0 Seconds (9.4-12.1) H D 09/05/16 09:59 Consult Discharge Plan - Plan Referrals: Speedy Dickerson MD [Primary Care Provider] - (SENT WEB REQUEST ON 09-05-16 @ [id number])
[2016-09-05 12:52] LABS: Hematocrit 21.4 % (37.5-50.1); Hemoglobin 7.3 g/dL (12.9-16.9)
--- NOTE | 2016-09-05 13:52 | Electrocardiograph Report ---
[place] [id number] Test Date: 2016-09-04 Pat Name: Sriram Dasilva Department: [id number] Room: 2N13 Gender: M Technical Solutions Engineer: : [id number] Requested By: Ayana De Guzman Order Number: [id number] Reading MD: Bandar Schroeder MD Measurements Intervals [place] Rate: 109 P: 60 WY: 123 QRS: 39 QRSD: 76 T: 66 QT: 327 QTc: 391 Interpretive Statements SINUS TACHYCARDIA NONSPECIFIC T-WAVE ABNORMALITY Electronically Signed On 09-05-2016 13:50:56 EST by Bandar Schroeder MD
[2016-09-05] MEDS: *HR* HYDROcodone/Acet 5/325 mg TABLET PO PRN (18:33)
--- NOTE | 2016-09-05 18:44 | Oncology Inp Consult Note ---
Date of Encounter: 09/05/16 Time of Encounter: 17:00 Assessment and Plan (1) Coagulopathy Status: Acute Assessment and plan: Patient with anemia, without thrombocytopenia, prolonged PTT and PT and INR, fibrinogen, d-dimer is not available for review. Complained disposition deficiency likely due to liver disease, (AST ALT normal ? decreased synthetic function vs med/alcohol) history of hepatitis B, ? DIC/consumptive coagulopathy , platelets are normal fibrinogen results not available. Ordered d dimers/ fibrinogen levels. He is planned for a colonoscopy to identify any source of bleeding/malignancy INR 1.8, redose with vitamin K/ 2 units of FFP prior to procedure in a.m. Hx head and neck cancer in remission-last seen in onc 2014 Plan as noted above discussed with patient/caregiver in detail - Data of Consult Requesting Physician: Jeannie Pfeiffer MD Primary Care Provider: Speedy Dickerson MD - Consult Narrative Reason for consult: coagulopathy History of present illness: Mr. 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 He denied any prior similar episodes he had bright red blood denied any anticoagulant use, or new medication/[id number] intake. He uses alcohol 4 beers daily, history of hepatitis B, not taken any treatment. Patient had a INR of 12.5 PT more prolonged than PTT. He is scheduled for colonoscopy tomorrow. He is having bowel prep and continues to have bleeding. He is status post transfusion of red cells 3 units and plasma 2 units and vitamin K IV. He denies any epistaxis denies bruising no hematuria. He denies any abdominal pain. Past Med Surg Social Fam HX - Past Medical History Medical history: cancer (lymph node in neck), diabetes, hepatitis (B), hyperlipidemia, hypertension Psychiatric history: no psych history - Past Surgical History Surgical History: cancer surgery (Lymph node removal from the neck), other (PEG tube placement, tonsillectomy) - Social History Smoking Status: Current every day smoker Smokeless Tobacco Status: No Alcohol use: occasionally Drug use: marijuana - Family History Father Name: Sriram Dasilva Living Status: Age at : 77 Hx Family Cardiac Disorders: No Hx Family Respiratory Disorders: No Hx Family Cancer: No Hx Family GI Disorders: No Hx Family Genitourinary Disorders: Yes Hx Family Endocrine Disorder: No Hx Family Musculoskeletal Disorders: No Hx Family Neuromuscular Disorders: No Hx Family Neurologic Disorders: No Hx Family HEENT Disorders: No Hx Family Autoimmune Disorders: No Hx Family Reproductive Disorders: No Hx Family Psychosocial Disorders: No Hx Family Medical Disorders: No Medications and Allergies Alprazolam [Xanax 0.5 MG Tablet] 0.5 mg PO QID PRN 09/05/16 [History] Fenofibrate Nanocrystallized [Fenofibrate] 145 mg PO DAILY 09/05/16 [History] Gabapentin [Gabapentin] 900 mg PO TID 09/05/16 [History] HYDROcodone/Acet 5/325 mg [[place] 5-325 mg] 1 - 2 tab PO Q6H PRN 09/05/16 [ History] Lisinopril [Zestril] 10 mg PO DAILY 09/05/16 [History] Loratadine [Allergy Relief] 10 mg PO DAILY 09/05/16 [History] Metformin HCl [Metformin HCl ER] 1,500 mg PO DAILY 09/05/16 [History] Omeprazole [PriLOSEC] 20 mg PO DAILY 09/05/16 [History] Simvastatin [Simvastatin] 80 mg PO DAILY 09/05/16 [History] Tamsulosin [Flomax] 0.4 mg PO DAILY 09/05/16 [History] TraZODone 100 mg PO HS 09/05/16 [History] Allergies No Known Allergies Allergy (Verified 09/04/16 22:02) Review of systems: as in HPI otherwise negative Oncology - Exam - Constitutional Vitals: Temp Pulse Resp BP Pulse Ox 98.2 F 96 20 132/76 99 09/05/16 16:31 09/05/16 16:31 09/05/16 16:31 09/05/16 16:31 09/05/16 16:31 Exam: Well-built and acute distress HEENT atraumatic normocephalic no icterus. Neck no adenopathy Chest bilateral air entry clear. Cardio vascular as well as to regular Abdomen soft nontender distention, bowel sounds Neurologic alert awake oriented 3 no gross deficits Psych normal affect Extremities no lower extremity edema. Oncology - Results - Labs Labs: Short CBC 09/05/16 09/05/16 Range/Units 09:59 12:34 WBC 7.2 (4.3-11.1) K/mcL Hgb 7.3 L 7.3 L (12.9-16.9) g/dL Hct 21.4 L 21.4 L (37.5-50.1) % Plt Count 156 (140-400) K/mcL Neutrophils # 5.1 (1.6-8.9) K/mcL BMP 09/05/16 09:59 Sodium 139 Potassium 4.1 Chloride 110 H Carbon Dioxide 24 BUN 12 Creatinine 0.78 Glucose 136 H Calcium 7.8 L Consult Discharge Plan - Plan Referrals: Speedy Dickerson MD [Primary Care Provider] - (SENT WEB REQUEST ON 09-05-16 @ [phone])
[2016-09-05 20:03] LABS: Hematocrit 25.4 % (37.5-50.1); Hemoglobin 8.6 g/dL (12.9-16.9)
[2016-09-05] MEDS: Fenofibrate 54 MG TABLET PO SCH (21:06)
[2016-09-06 04:05] LABS: Basophils % 0.8 %; Eosinophils # 0.1 K/mcL (0.0-0.6); Eosinophils % 2.6 %; Hematocrit 24.9 % (37.5-50.1); Hemoglobin 8.5 g/dL (12.9-16.9); Immature Granulocytes % 0.4 % (0-4); Lymphocytes # 1.5 K/mcL (0.6-4.6); Lymphocytes % 29.9 %; Mean Corpuscular HGB Conc 34.1 g/dL (31.6-35.5); Mean Corpuscular Hemoglobin 30.9 pg (28.0-33.3); Mean Corpuscular Volume 90.5 fL (83.0-100.0); Mean Platelet Volume 8.7 fL (9.4-12.4); Monocytes # 0.5 K/mcL (0.0-1.3); Monocytes % 10.6 %; Neutrophils # 2.8 K/mcL (1.6-8.9); Platelet Count 147 K/mcL (140-400); Red Blood Count 2.75 M/mcL (4.19-5.50); Segmented Neutrophils % 55.7 %
[2016-09-06 04:11] LABS: BUN/Creatinine Ratio 9 (6-26); Blood Urea Nitrogen 7 mg/dL (8-26); Calcium 7.6 mg/dL (8.6-10.8); Carbon Dioxide 25 mEq/L (19-29); Chloride 112 mEq/L (98-109); Glucose 129 mg/dL (70-99); Magnesium 1.9 mg/dL (1.6-2.6); Osmolality,Calculated 288 (280-300); Phosphorous 2.1 mg/dL (2.3-4.7); Potassium 3.9 mEq/L (3.5-4.5); Sodium 139 mEq/L (136-145); eGFR For African Americans > 60 (> 60); eGFR For Non-African Americans > 60 (> 60)
[2016-09-06 04:15] LABS: INR 1.8; Prothrombin Time 20.2 Seconds (9.4-12.1)
[2016-09-06 04:26] LABS: Fibrinogen 188 mg/dL (169-393)
[2016-09-06 04:27] LABS: D-Dimer < 215 ng/mLFEU (0-500)
[2016-09-06] MEDS: Insulin LISPRO 300 UNITS/3 ML VIAL SQ SCH ×4 (08:41→20:05)
[2016-09-06] MEDS: Gabapentin 300 MG CAPSULE PO SCH ×3 (08:47→20:02)
[2016-09-06] MEDS: *HR* HYDROcodone/Acet 5/325 mg TABLET PO PRN ×2 (08:48→15:23)
--- NOTE | 2016-09-06 11:41 | Internal Med Progress Note ---
Date of Encounter: 09/06/16 Time of Encounter: 11:39 - Assessment and plan (1) Hematochezia Current Visit: Yes Status: Acute Assessment and plan: Acute blood loss anemia secondary to hematochezia CT abdomen and pelvis shows diverticulosis without evidence of diverticulitis Repeat INR 1.8 Status post 3 units FFP transfusion Status post 4unit PRBC transfusion Surgery consultation appreciated Patient to undergo colonoscopy later today Dietary recommendations as per surgery after colonoscopy H&H low but acceptable Continue to monitor H&H closely (2) Acute blood loss anemia Current Visit: Yes Status: Acute Assessment and plan: As listed above (3) Coagulopathy Current Visit: Yes Status: Acute Assessment and plan: Reversed status post 3 unit FFP transfusion Repeat INR 1.8 Patient will need further hematological workup, possibly as outpatient once acute issue has been resolved Hematology consultation appreciated (4) Diabetes mellitus Current Visit: Yes Status: Acute Assessment and plan: Hold oral antihyperglycemic agents at this time Continue insulin sliding scale algorithm Continue to monitor fingerstick glucose and blood glucose Qualifiers: Diabetes mellitus type: type 2 Diabetes mellitus complication status: with unspecified complications Diabetes mellitus buttermaker continuous churn insulin use: without halfway use Qualified Code(s): E11.8 - Type 2 diabetes mellitus with unspecified complications (5) Hypertension Current Visit: Yes Status: Chronic Assessment and plan: BP within acceptable range Continue home medications Qualifiers: Hypertension type: essential hypertension Qualified Code(s): I10 - Essential (primary) hypertension (6) Tobacco abuse Current Visit: Yes Status: Acute Assessment and plan: Smoking cessation counseling provided Patient not ready to quit at this time Refused nicotine replacement therapy (7) BPH (benign prostatic hyperplasia) Current Visit: Yes Status: Chronic Assessment and plan: Continue home medications Qualifiers: Prostatic enlargement morphology: unspecified morphology Lower urinary tract symptom presence: presence of symptoms unspecified Qualified Code(s): N40.0 - Benign prostatic hyperplasia without lower urinary tract symptoms - Subjective Interval history: Patient is a 61-year-old male who is admitted for symptomatic anemia secondary to acute blood loss anemia/lower GI bleed. Patient seen and examined with family present at bedside. Denies any recurrent rectal bleeding episodes since yesterday. Scheduled for colonoscopy later today. - Constitutional Vitals: Temp Pulse Resp BP Pulse Ox 98.0 F 92 18 134/89 96 09/06/16 11:33 09/06/16 11:33 09/06/16 11:33 09/06/16 11:33 09/06/16 11:33 General appearance: Present: cooperative, A&O X 3, no acute distress, obese, answers questions appropriately - Head Head exam: Present: atraumatic, normocephalic - Eye Eye exam: Present: PERRL, conjuntiva pink, sclera anicteric - Respiratory Respiratory exam: Present: CTAB. Absent: accessory muscle use, rales, rhonchi, wheezes - Cardiovascular Cardiovascular exam: Present: RRR, +S1, +S2. Absent: diastolic murmur, gallop, rubs, systolic murmur - GI/Abdominal GI/Abdominal exam: Present: normal bowel sounds, soft, no peritoneal signs. Absent: distended, tenderness - Extremities Exam Extremities exam: Present: warm, radial pulses palpable and symetrical. Absent : calf tenderness, cyanotic, pedal edema - Neurological Exam Neurological exam: Present: alert, oriented X3 Internal Medicine: Result - Labs CBC & Chem 7: 09/06/16 03:45 09/06/16 03:45 Labs: Short CBC 09/05/16 09/05/16 09/06/16 Range/Units 12:34 19:56 03:45 WBC 5.0 (4.3-11.1) K/mcL Hgb 7.3 L 8.6 L 8.5 L (12.9-16.9) g/dL Hct 21.4 L 25.4 L 24.9 L (37.5-50.1) % Plt Count 147 (140-400) K/mcL Neutrophils # 2.8 (1.6-8.9) K/mcL BMP 09/06/16 03:45 Sodium 139 Potassium 3.9 Chloride 112 H Carbon Dioxide 25 BUN 7 L Creatinine 0.77 Glucose 129 H Calcium 7.6 L - ABG Interpretation ABG results: PT/INR, D-dimer PT 20.2 Seconds (9.4-12.1) H 09/06/16 03:45 D-Dimer < 215 ng/mLFEU (0-500) 09/06/16 03:45 Consult Discharge Plan - Plan Referrals: Speedy Dickerson MD [Primary Care Provider] - (SENT WEB REQUEST ON 09-05-16 @ [id number])
[2016-09-06 12:06] LABS: Hematocrit 30.3 % (37.5-50.1)
[2016-09-06 12:07] LABS: Hemoglobin 10.1 g/dL (12.9-16.9)
[2016-09-06] MEDS: ALPRAZolam 0.5 MG TABLET PO PRN (13:17)
[2016-09-06] MEDS ORDERED: Simethicone 40 MG/0.6 ML MLS IR ONE (15:47)
[2016-09-06] MEDS ORDERED: *HR* Promethazine 25 MG/ML VIAL IVP ONE (15:47)
[2016-09-06] MEDS ORDERED: Tetracaine/Benzocaine/Butamben 200MG/SPRAY (100SPY/BOT) MM ONE (15:47)
[2016-09-06] MEDS ORDERED: *HR* Midazolam HCl 5 MG/5 ML VIAL IVP ONE (15:48)
[2016-09-06] MEDS ORDERED: *HR* FentaNYL (PF) 100 MCG/2 ML VIAL ONE (15:49)
--- NOTE | 2016-09-06 15:49 | Pre-Sedation Evaluation ---
Pre-sedation evaluation - Pre-sedation checklist Date of procedure: 09/06/16 Procedure: egd/colonoscopy Recent Vitals: Last Vital Signs Temp 98.0 F 09/06/16 11:33 Pulse 76 09/06/16 15:34 Resp 18 09/06/16 11:33 BP 134/89 09/06/16 11:33 Pulse Ox 96 09/06/16 11:33 H&P (including ROS) documented in medical record: Yes Previous reaction to sedatives/anesthetics: No Dietary Status: NPO after Midnight Airway Assessment: Patient can open mouth completely, TMJ function normal ASA Classification *see protocol: CLASS III-Severe systemic disease Plan of Care: Pt appropriate candidate for procedure/moderate/conscious sedation , Risks/benefits of procedure/sedation discussed w/ patient/family
[2016-09-06] MEDS ORDERED: 0.9 % Sodium Chloride 1,000 ML IVC SCH (16:00)
[2016-09-06] MEDS: *HR* Midazolam HCl 5 MG/5 ML VIAL IVP PRN ×5 (16:00→16:29)
[2016-09-06] MEDS: *HR* FentaNYL (PF) 100 MCG/2 ML VIAL IVP PRN ×5 (16:00→16:29)
[2016-09-06] MEDS: Fenofibrate 54 MG TABLET PO SCH (20:02)
[2016-09-06] MEDS: traZODone 50 MG TABLET PO SCH (20:02)
[2016-09-06] MEDS: Sucralfate 1 GM TABLET PO SCH (22:37)
[2016-09-07 05:17] LABS: Basophils % 0.5 %; Eosinophils # 0.2 K/mcL (0.0-0.6); Eosinophils % 2.2 %; Hematocrit 27.5 % (37.5-50.1); Hemoglobin 9.2 g/dL (12.9-16.9); Immature Granulocytes % 0.2 % (0-4); Lymphocytes # 1.4 K/mcL (0.6-4.6); Lymphocytes % 16.1 %; Mean Corpuscular HGB Conc 33.5 g/dL (31.6-35.5); Mean Corpuscular Hemoglobin 31.3 pg (28.0-33.3); Mean Corpuscular Volume 93.5 fL (83.0-100.0); Mean Platelet Volume 8.9 fL (9.4-12.4); Monocytes # 0.8 K/mcL (0.0-1.3); Monocytes % 9.2 %; Neutrophils # 6.3 K/mcL (1.6-8.9); Platelet Count 178 K/mcL (140-400); Red Blood Count 2.94 M/mcL (4.19-5.50); Red Cell Distribution Width 14.4 % (11.5-14.5); Segmented Neutrophils % 71.8 %
[2016-09-07 05:42] LABS: BUN/Creatinine Ratio 12 (6-26); Blood Urea Nitrogen 11 mg/dL (8-26); Calcium 7.9 mg/dL (8.6-10.8); Carbon Dioxide 25 mEq/L (19-29); Chloride 110 mEq/L (98-109); Glucose 165 mg/dL (70-99); Magnesium 2.2 mg/dL (1.6-2.6); Osmolality,Calculated 293 (280-300); Phosphorous 2.9 mg/dL (2.3-4.7); Potassium 4.1 mEq/L (3.5-4.5); Sodium 140 mEq/L (136-145); eGFR For African Americans > 60 (> 60); eGFR For Non-African Americans > 60 (> 60)
[2016-09-07] MEDS: Gabapentin 300 MG CAPSULE PO SCH (08:01)
[2016-09-07] MEDS: Sucralfate 1 GM TABLET PO SCH ×2 (08:02→11:27)
[2016-09-07] MEDS: *HR* HYDROcodone/Acet 5/325 mg TABLET PO PRN (08:02)
[2016-09-07] MEDS: Insulin LISPRO 300 UNITS/3 ML VIAL SQ SCH ×2 (08:02→11:26)
[2016-09-07] MEDS: ALPRAZolam 0.5 MG TABLET PO PRN (08:02)
--- NOTE | 2016-09-07 11:23 | Discharge Summary ---
Date of Encounter: 09/07/16 Time of Encounter: 11:17 - Discharge Diagnosis (1) Hematochezia Priority: Primary Status: Acute (2) Acute blood loss anemia Priority: Primary Status: Acute (3) Coagulopathy Priority: Secondary Status: Acute (4) Diabetes mellitus Priority: Secondary Status: Chronic Qualifiers: Diabetes mellitus type: type 2 Diabetes mellitus complication status: with unspecified complications Diabetes mellitus bed bug exterminator insulin use: without mcc use Qualified Code(s): E11.8 - Type 2 diabetes mellitus with unspecified complications (5) Hypertension Priority: Secondary Status: Chronic Qualifiers: Hypertension type: essential hypertension Qualified Code(s): I10 - Essential (primary) hypertension (6) Tobacco abuse Priority: Secondary Status: Chronic (7) BPH (benign prostatic hyperplasia) Priority: Secondary Status: Chronic Qualifiers: Prostatic enlargement morphology: unspecified morphology Lower urinary tract symptom presence: presence of symptoms unspecified Qualified Code(s): N40.0 - Benign prostatic hyperplasia without lower urinary tract symptoms - Discharge Medications Prescriptions: Omeprazole [PriLOSEC] 40 mg PO DAILY #30 capsule. Psyllium Husk [Metamucil] 0.52 gm PO DAILY #30 capsule Sucralfate [Carafate] 1 gm PO QIDAC #60 tablet Home Medications: Alprazolam [Xanax 0.5 MG Tablet] 0.5 mg PO QID PRN 09/05/16 [History] Fenofibrate Nanocrystallized [Fenofibrate] 145 mg PO DAILY 09/05/16 [History] Gabapentin 900 mg PO TID 09/05/16 [History] HYDROcodone/Acet 5/325 mg [[place] 5-325 mg] 1 - 2 tab PO Q6H PRN 09/05/16 [ History] Lisinopril [Zestril] 10 mg PO DAILY 09/05/16 [History] Loratadine [Allergy Relief] 10 mg PO DAILY 09/05/16 [History] Metformin HCl [Metformin HCl ER] 1,500 mg PO DAILY 09/05/16 [History] Simvastatin 80 mg PO DAILY 09/05/16 [History] Tamsulosin [Flomax] 0.4 mg PO DAILY 09/05/16 [History] TraZODone 100 mg PO HS 09/05/16 [History] Omeprazole [PriLOSEC] 40 mg PO DAILY #30 capsule. 09/07/16 [Rx] Psyllium Husk [Metamucil] 0.52 gm PO DAILY #30 capsule 09/07/16 [Rx] Sucralfate [Carafate] 1 gm PO QIDAC #60 tablet 09/07/16 [Rx] Allergies/Adverse Reactions: Allergies No Known Allergies Allergy (Verified 09/04/16 22:02) Date of admission: 09/05/16 02:50 Primary care physician: Speedy Dickerson MD Consults: 09/05/16 03:03 Consult to Oncology [CONS] Routine Consulting Provider: Oncology [facility] Reason for Consult: Coagulopathy Call Completed: No Consult to Surgery [CONS] Routine Consulting Provider: Surgery [facility] Reason for Consult: Lower GI bleed - possible diverticular bleed Call Completed: No Discharging clinician: Jeannie Pfeiffer Anticipated date of discharge: 09/07/16 - Patient Status Disposition: Home, Self-Care Condition: Good Functional capacity at discharge: independent ambulation Overall status at discharge: patient is back to baseline - Discharge Instructions Follow Up With: Speedy Dickerson MD [Primary Care Provider] - (SENT WEB REQUEST ON 09-05-16 @ [phone]) Additional Instructions: Please follow-up with your primary care physician within 5 days after discharge from the hospital. Please follow-up with clinical staff educator within 1-2 weeks after discharge from the hospital. Please follow up with Dr. Atkins's office in regards to your biopsy results within one to two weeks after discharge from the hospital Your Protonix dose has been increased to 40 mg once a day and Carafate has been added to her home medications. Please take Metamucil as prescribed and high fiber diet is recommended. Please resume all usual home medications as prescribed by her primary care physician. Please seek medical help if you experience recurrent bleeding. - Diet and Activity Activity: resume usual activities as tolerated Diet: other (high fiber diet) Hospital course: Mr. Dasilva is a 61 year old male with past medical history of hypertension, diabetes, hyperlipidemia, neck cancer status post chemotherapy/radiation in remission, BPH who was admitted for management of lower GI bleed/rectal bleed. He was also noted to have supratherapeutic INR without being on any anticoagulation. Patient was noted to have acute blood loss anemia and hypercoagulable state due to which he received PRBC and FFP transfusion. He underwent EGD and colonoscopy done by Dr. Atkins. EGD showed duodenal lipoma, nonbleeding gastric ulcers with no stigmata of bleeding (biopsied). Colonoscopy showed diverticulosis in the sigmoid colon and in the descending colon. Many 3-6 mm polyps in the rectum, in the transverse colon and in the cecum, removed. 10 2-3 mm polyps in the rectum, in the sigmoid colon and in the descending colon, removed. Patient was started on Carafate 4 times a day, and his PPI was increased to 40 mg once a day. Metamucil and high fiber diet were also recommended. Patient was also seen by clinical staff educator and is to follow- up with them as outpatient. At this time patient is hemodynamically stable, and has had no recurrent episodes of bleeding for the last 48 hours. His H&H is within acceptable range. He will be discharged to home with follow-up with primary care physician, hematology, and surgery. - Time Spent with Patient Total time spent providing and/or coordinating discharge services: Greater than 30 minutes - Constitutional Vitals: Temp Pulse Resp BP Pulse Ox 97.9 F 81 18 133/73 97 09/07/16 07:23 09/07/16 07:23 09/07/16 07:23 09/07/16 07:23 09/07/16 07:23 General appearance: Present: cooperative, A&O X 3, no acute distress, obese, answers questions appropriately - Head Head exam: Present: atraumatic, normocephalic - Eye Eye exam: Present: normal appearance, conjuntiva pink, sclera anicteric - Respiratory Respiratory exam: Present: CTAB. Absent: accessory muscle use, rales, rhonchi, wheezes - Cardiovascular Cardiovascular exam: Present: RRR, +S1, +S2. Absent: diastolic murmur, gallop, rubs, systolic murmur - GI/Abdominal GI/Abdominal exam: Present: normal bowel sounds, soft, no peritoneal signs. Absent: distended, tenderness - Extremities Exam Extremities exam: Present: warm, radial pulses palpable and symetrical. Absent : calf tenderness, cyanotic, pedal edema - Neurological Exam Neurological exam: Present: alert, oriented X3, no focal deficits. Absent: pronater drift, facial droop, speech deficit - Psychiatric Psychiatric exam: Present: normal affect, normal mood
[2016-09-07 11:25] VITALS: BP 144/81
== END 2016-09-07 12:16 | disposition home or self-care (01) | DRG 378 ==
LOC: 2NNU 21:53 → EMEROO 21:53 → 2NNU 09-05 01:45
PROVIDERS: ADMIT Hospitalist; ATTEND Internal Medicine
PROC: ENDOEBX (2016-09-06 15:30)

== ENCOUNTER 2017-03-25 06:27 | Inpatient (IN) ==
[2017-03-25] MEDS ORDERED: Albuterol 2.5 MG/3 ML NEBULIZER IH ONE ×2 (07:00→12:30)
[2017-03-25] MEDS ORDERED: Ringers Solution, Lactated 1,000 ML IVC SCH ×2 (07:00→12:30)
[2017-03-25] MEDS ORDERED: CeFAZolin Pre 2,000 MG/100 ML 2,000 MG/100 ML BAG IVPB ONE (07:00)
--- NOTE | 2017-03-25 07:05 | Anesthesia Evaluation PreOp ---
Date of Encounter: 03/25/17 Time of Encounter: 07:03 - Past History Planned Operation: Right Robotic Partial Nephrectomy Cardiac History: HTN, Hyperlipidemia Pulmonary History: Smoker (30+ years), Snore CART PUSHER History: Other (chronic neck and low back pain) Other Medical History: Hepatic (hepatitis B), Diabetes Type II, GERD, Other ( neck CA S/P chemo/XRT) Anesthesia History: No Prior Anesthetic Complications, Past Anesthesia Alcohol Use: occasionally Drug use: marijuana Medications and Allergies ALPRAZolam [Xanax 0.5 MG Tablet] 0.5 mg PO QID PRN 09/05/16 [History] Fenofibrate Nanocrystallized [Fenofibrate] 145 mg PO DAILY 09/05/16 [History] Gabapentin 900 mg PO TID 09/05/16 [History] HYDROcodone/Acet 5/325 mg [[place] 5-325 mg] 1 - 2 tab PO Q6H PRN 09/05/16 [ History] Lisinopril [Zestril] 10 mg PO DAILY 09/05/16 [History] Loratadine [Allergy Relief] 10 mg PO DAILY 09/05/16 [History] Metformin HCl [Metformin HCl ER] 1,500 mg PO DAILY 09/05/16 [History] Simvastatin 80 mg PO DAILY 09/05/16 [History] Tamsulosin [Flomax] 0.4 mg PO DAILY 09/05/16 [History] traZODone [TraZODone] 100 mg PO HS 09/05/16 [History] Omeprazole [PriLOSEC] 40 mg PO DAILY #30 capsule. 09/07/16 [Rx] Psyllium Husk [Metamucil] 0.52 gm PO DAILY #30 capsule 09/07/16 [Rx] Ferrous Sulfate [Iron] 325 mg PO BID #60 tablet 10/15/16 [Rx] 3 Allergy/AdvReac Type Severity Reaction Status Date / Time No Known Allergies Allergy Verified 09/13/16 09:20 - Meds/Allergy Pre-op Review Medications Reviewed: Yes Allergies Reviewed: Yes Beta Blockers on Current Med List: No Anesthesia Results - Labs Laboratory Tests 09/05/16 09/06/16 03/18/17 09:59 03:45 10:20 WBC 6.1 Hgb 13.5 Hct 40.4 Plt Count 207 PT 20.2 H INR 1.8 APTT 38.2 H Sodium Potassium BUN Creatinine 03/18/17 10:20 WBC Hgb Hct Plt Count PT INR APTT Sodium 137 Potassium 4.3 BUN 13 Creatinine 0.99 - Imaging EKG: report reviewed (09/04/2016 SINUS TACHYCARDIA NONSPECIFIC T-WAVE ABNORMALITY) Anesthesia Exam O2 Sat Height 1.83 m Height 1.83 m Weight 105.233 kg Weight 105.233 kg O2 Sat by Pulse Oximetry 95 Vital Signs Temp Pulse Resp BP Pulse Ox 98.0 F 87 18 153/95 95 03/25/17 06:55 03/25/17 06:55 03/25/17 06:55 03/25/17 06:55 03/25/17 06:55 Height: 6' Weight: 232 lbs NPO (# of Hours): 8 Pain Scale: 0 Pain Scale Used: Numeric (1 - 10) - HEENT Pupil (Motor): EOMI Mallampati: II Teeth: Missing, Poor dentition Denture Type: Upper: Complete, Lower: Partial Oral Opening: Greater than 3 (neck with limited ROM, muscles very tight) - CART PUSHER LOC: Oriented CART PUSHER Motor: Normal RUE, Normal LUE, Normal RLE, Normal LLE, Normal Face CART PUSHER Sensory: Normal: RUE, LUE, Face, Deficit: RLE, LLE - Cardiac Rhythm: Regular Murmur: None - Pulmonary Breath Sounds: bilateral Clear Respiratory Effort: Symmetrical Anesthesia Assess/Plan ASA Score: 3 Modified Manny Scale for Level of Consciousness: Cooperative, oriented, and tranquil Anesthetic Plan: General Monitoring Plan: Standard Monitors, A-Line Recovery Plan: PACU
--- NOTE | 2017-03-25 07:08 | History & Physical Report ---
Date of Encounter: 03/25/17 Time of Encounter: 07:08 24 Hour HP Update - Instructions Instructions: If the History and Physical is less than 30 days old and was completed prior to A.M. admission and or procedure and has NOT been updated on calendar day of procedure please complete this update prior to performing procedure. - Update Patient reports changes in Medical Condition: No Changes in examination, assessment, or condition: No Changes in Medication: No Preop tests/diagnostics Reviewed: Yes Surgery Remains Indicated: Yes Consent for Planned Operative Procedure(s) Verified: Yes - Pre-Operative Checklist Preoperative Checklist Indicated: Yes Prophylactic Antibiotic Ordered: Yes Home Medications Include Beta Abigail: No Is VTE Prophylaxis Indicated?: Yes
[2017-03-25] MEDS ORDERED: Lidocaine -MPF 2% 2 ML VIAL ONE (07:39)
[2017-03-25] MEDS ORDERED: *HR* Midazolam HCl 2 MG/2 ML VIAL ONE (07:39)
[2017-03-25] MEDS ORDERED: Ondansetron 4 MG/2 ML VIAL ONE (07:39)
[2017-03-25] MEDS ORDERED: Neostigmine Methylsulfate 3 MG/3 ML SYRINGE ONE ×2 (07:39→11:47)
[2017-03-25] MEDS ORDERED: *HR* Succinylcholine 200 MG/10 ML VIAL IVP ONE (07:39)
[2017-03-25] MEDS ORDERED: *HR* FentaNYL (PF) 100 MCG/2 ML VIAL ONE ×2 (07:39→08:41)
[2017-03-25] MEDS ORDERED: *HR* Rocuronium Bromide 50 MG/5 ML VIAL ONE ×2 (07:39→12:12)
[2017-03-25] MEDS ORDERED: *HR* Propofol 200 MG/20 ML VIAL IVP ONE (07:39)
[2017-03-25] MEDS ORDERED: Dexamethasone 4 MG/ML VIAL ONE (07:39)
[2017-03-25] MEDS ORDERED: Heparin 1,000 UNITS/500 mL NS 500 ML ONE (07:43)
[2017-03-25] MEDS ORDERED: Lidocaine -MPF 4% 5 ML AMPUL ONE (07:44)
[2017-03-25] MEDS ORDERED: Mannitol 25% vial 12.5 GM/50 ML VIAL ONE (08:18)
[2017-03-25] MEDS ORDERED: *HR* Phenylephrine 10 MG/ML VIAL ONE (08:28)
[2017-03-25] MEDS ORDERED: Bupivacaine-MPF 0.25% 10 ML VIAL ONE (11:23)
[2017-03-25] MEDS ORDERED: *HR* HYDROmorphone 2 MG/ML SYRINGE ONE ×2 (11:51→12:32)
--- NOTE | 2017-03-25 12:24 | Operative Note ---
Date of procedure: 03/25/17 Pre-op diagnosis: Right renal mass Post-op diagnosis: same Procedure: Right robotic-assisted laparoscopic partial nephrectomy. Implants: 19 Jamaican Jorgito drain. 16 Jamaican Reveles catheter. Complications: none. Anesthesia: JARET Surgeon: Bob Reyes Blend Plant Operator: Jose Daniel Santiago Estimated blood loss (cc): 150 Specimen: Fat over kidney tumor. Right kidney tumor. Condition: stable Disposition: PACU Procedure in Detail: Indications: Sriram is a 61-year-old man who presents with a right renal mass. He elected to undergo a right robotic partial nephrectomy. He was informed of the risks of the procedure which include but are not limited to bleeding, infection, injury to other structures, need for further procedures, urine leak, bowel injury, need for complete nephrectomy, need for open conversion, and the risk of anesthesia. He is willing to proceed. Procedure After informed consent was obtained the patient was brought back to the operating room and placed in the supine position. A timeout was performed. Gen. anesthesia was then administered and an endotracheal tube was placed. Appropriate IV access and arterial lines were obtained. He was then placed in the flank position. His right side was up. All pressure points were padded. He was well secured to the table. He was then prepped and draped in the usual sterile fashion. We then marked out our incision 2 fingerbreadths superior to the umbilicus and 2 fingerbreadths lateral to that. A 10 mm incision was then made. The Veress needle was introduced. 2 clicks were heard. It passed the water drop test. Insufflation was then initiated. Pressures were low consecutively. The abdomen was insufflated. Once the pressure was up to 15, we inserted the 12 mm laparoscopic port with the visual obturator and the 8 mm robotic camera. Entry was obtained into the abdomen. The bowel was surveyed below and there is no evidence of bowel injury. Robotic ports were then inserted inferior and lateral to the camera port and superior to the camera port. A 12 mm port was placed for the assistant professor of nursing inferior to the umbilicus. The robot was docked. The bowel was reflected off the kidney along the white line of Toldt. The mass was easily seen located medially and anteriorly on the kidney. There was a fair amount of fat around the kidney. During this fascia was entered. The kidney was identified and its medial aspect. Dissection further medial revealed the vena cava. The renal vein was identified. The renal artery had a branch and both of these were dissected out. The liver was dissected off the kidney. I then turned my attention to the fat overlying the renal mass. This was dissected off the kidney. It was then sent separately. The ultrasound was introduced. I was able to identify the area of resection. This was scored with electrocautery. Mannitol was then given. The 2 renal arteries were clamped using the bulldog. The tumor was excised sharply using cold scissors. Once the tumor was removed I utilized a 3-O V-LOC suture to close the deeper vessels in a running fashion. Three of these sutures were placed. Hemostasis was then achieved along these vessels. The bulldogs were then removed. There was 22 minutes of warm ischemia. I then closed the capsule to itself using 0 Vicryl suture in an interrupted fashion with the sliding clip renorrhaphy technique. Hemostasis was good. FloSeal was applied to the resection area. Hemostasis seemed adequate. Surgicel was placed over top. The Gerota's fascia was then closed over top of the kidney in a running fashion using a 3-0 Vicryl suture. The specimen was removed. A 19 [place]ican Jorgito drain was then placed. All the ports were then removed. The larger 12 mm ports were closed using a 2-0 Vicryl in an interrupted fashion. The wounds were closed using 4-0 Monocryl suture. The drain was secured to the skin using a nylon suture. The abdomen was then washed and dried and Dermabond was applied to the wounds. The patient was then awakened from general anesthesia and brought to recovery room in good condition. All sponge, needle, and instrument counts were correct.
[2017-03-25] MEDS ORDERED: *HR* Labetalol 20 MG/4 ML SYRINGE IVP PRN (12:30)
[2017-03-25] MEDS ORDERED: *HR* Promethazine 25 MG/ML VIAL IVP PRN (12:30)
[2017-03-25] MEDS ORDERED: Ondansetron 4 MG/2 ML VIAL IVP ONE (12:30)
[2017-03-25] MEDS: *HR* HYDROmorphone (PF) 1 MG/ML SYRINGE IVP PRN ×4 (12:50→13:38)
--- NOTE | 2017-03-25 14:03 | Anesthesia Evaluation Post Op ---
Date of Encounter: 03/25/17 Time of Encounter: 14:00 - Vital Signs Vital Signs: Vital Signs/O2 Sat/Glucose, Most Current Temp Pulse Resp BP Pulse Ox 03/25/17 13:45 98 189 138/80 98 03/25/17 13:35 98.2 F 91 18 144/83 97 03/25/17 13:25 104 18 145/92 97 03/25/17 13:15 102 18 139/86 98 03/25/17 13:05 98.6 F 97 16 152/81 97 03/25/17 12:55 91 18 152/84 96 03/25/17 12:45 98 18 177/94 97 03/25/17 12:35 98.9 F 109 18 175/94 98 - Lungs Lungs: Clear Ascult./Percussion - Airway Airway: Non-obstructed - Cardiovascular Regular Rate - Mental Status Mental Status: Alert & Oriented, Answers Appropriately - Pain Pain Scale: 1 - Nausea Vomiting Nausea Vomiting: Not Present - Hydration Hydration: Ice chips - Discharge PostOp Status: Transfer Patient to floor
[2017-03-25] MEDS ORDERED: Acetaminophen 325 MG TABLET PO PRN (14:23)
[2017-03-25] MEDS ORDERED: *HR* Dextrose 50 % in Water (Syg) 50 ML SYRINGE IVP PRN (14:23)
[2017-03-25] MEDS ORDERED: *HR* HYDROmorphone (PF) 1 MG/ML SYRINGE IVP PRN (14:23)
[2017-03-25] MEDS ORDERED: Naloxone 0.4 MG/ML INJ IVP PRN (14:23)
[2017-03-25] MEDS ORDERED: *HR* Promethazine 25 MG/ML VIAL IV PRN (14:23)
[2017-03-25] MEDS ORDERED: ALPRAZolam 0.5 MG TABLET PO PRN (14:23)
[2017-03-25] MEDS ORDERED: Ondansetron 4 MG/2 ML VIAL IVP PRN (14:23)
[2017-03-25] MEDS ORDERED: D5% in Water 1,000 ML IVC PRN (14:23)
[2017-03-25] MEDS ORDERED: Dextrose Gel 15 GM PO PRN ×2 (14:23)
[2017-03-25] MEDS: Gabapentin 300 MG CAPSULE PO SCH ×2 (15:06→21:23)
[2017-03-25] MEDS: *HR* OxyCODONE Immed Rel 5 MG TABLET PO PRN (15:07)
[2017-03-25] MEDS: 0.9 % Sodium Chloride 1,000 ML IVC SCH ×2 (15:08→23:37)
[2017-03-25] MEDS: ceFAZolin 2,000 MG in D5% in Water 100 ML IVPB SCH ×2 (17:01→23:27)
[2017-03-25] MEDS: Insulin LISPRO 300 UNITS/3 ML VIAL SQ SCH (18:21)
[2017-03-25] MEDS: *HR* HYDROmorphone 2 MG/ML SYRINGE IVP PRN ×2 (19:24→23:27)
[2017-03-25 19:36] LABS: Hematocrit 39.3 % (37.5-50.1); Hemoglobin 13.4 g/dL (12.9-16.9)
[2017-03-26] MEDS: Insulin LISPRO 300 UNITS/3 ML VIAL SQ SCH ×5 (00:17→23:33)
[2017-03-26] MEDS: traZODone 50 MG TABLET PO SCH ×2 (00:20→21:14)
[2017-03-26] MEDS: *HR* HYDROmorphone 2 MG/ML SYRINGE IVP PRN (03:24)
[2017-03-26 05:07] LABS: Basophils % 0.2 %; Hematocrit 35.6 % (37.5-50.1); Hemoglobin 12.1 g/dL (12.9-16.9); Immature Granulocytes % 0.3 % (0-4); Lymphocytes # 1.1 K/mcL (0.6-4.6); Lymphocytes % 12.2 %; Mean Corpuscular Hemoglobin 32.2 pg (28.0-33.3); Mean Corpuscular Volume 94.7 fL (83.0-100.0); Mean Platelet Volume 9.2 fL (9.4-12.4); Monocytes # 1.1 K/mcL (0.0-1.3); Monocytes % 12.1 %; Neutrophils # 6.9 K/mcL (1.6-8.9); Platelet Count 176 K/mcL (140-400); Red Blood Count 3.76 M/mcL (4.19-5.50); Red Cell Distribution Width 12.3 % (11.5-14.5); Segmented Neutrophils % 75.2 %
[2017-03-26 05:10] LABS: INR 1.1; Prothrombin Time 11.3 Seconds (9.4-12.1)
[2017-03-26] MEDS: *HR* HYDROmorphone (PF) 1 MG/ML SYRINGE IVP PRN ×4 (06:43→21:09)
[2017-03-26] MEDS: ceFAZolin 2,000 MG in D5% in Water 100 ML IVPB SCH ×3 (07:46→23:26)
--- NOTE | 2017-03-26 07:46 | Urology Progress Note ---
Date of Encounter: 03/26/17 Time of Encounter: 07:44 - Assessment and Plan (1) Right kidney mass Current Visit: No Status: Acute Assessment and plan: Postop day #1 status post right robotic partial nephrectomy. He is doing well. Drain output was somewhat high yesterday but has decreased overnight. His pain is adequately controlled. He feels hungry today. 1. Remove catheter today. 2. Continue JONATHAN for now to monitor for bleeding. 3. PT/OT consultation. 4. Clear liquid diet for now and advance to general diet if he tolerates this afternoon. 5. SCDs for DVT and PE prophylaxis. Progress Note Narrative: Postop day #1 status post right robotic-assisted partial nephrectomy. He is doing well. Drain output has decreased overnight. His pain is controlled. He wishes to ambulate today. Objective Initial Vital Signs Temp Pulse Resp BP Pulse Ox 98.0 F 87 18 153/95 95 03/25/17 06:55 03/25/17 06:55 03/25/17 06:55 03/25/17 06:55 03/25/17 06:55 - General physical appearance Present: well developed, well nourished, no distress - Respiratory Present: normal respiratory effort - Abdomen Present: soft (Appropriately tender. JONATHAN is sanguinous.) - Genitourinary Urine Appearance: Present: Clear - Labs 03/26/17 04:13 - VTE Documentation of Mechanical Device: Intermittent pneumatic compression device Consult Discharge Plan - Plan Referrals: Yari Apple, [employer] WORK[employer] [Primary Care Provider] -
[2017-03-26] MEDS: Gabapentin 300 MG CAPSULE PO SCH ×3 (07:47→21:14)
[2017-03-26] MEDS: 0.9 % Sodium Chloride 1,000 ML IVC SCH ×2 (10:30→17:48)
[2017-03-26] MEDS: *HR* OxyCODONE Immed Rel 5 MG TABLET PO PRN ×2 (15:34→23:18)
[2017-03-27] MEDS: *HR* HYDROmorphone (PF) 1 MG/ML SYRINGE IVP PRN (02:53)
[2017-03-27] MEDS: 0.9 % Sodium Chloride 1,000 ML IVC SCH (02:54)
[2017-03-27 05:00] LABS: Basophils % 0.2 %; Eosinophils % 0.1 %; Hematocrit 33.4 % (37.5-50.1); Hemoglobin 11.2 g/dL (12.9-16.9); Immature Granulocytes % 0.3 % (0-4); Lymphocytes # 0.8 K/mcL (0.6-4.6); Lymphocytes % 8.3 %; Mean Corpuscular HGB Conc 33.5 g/dL (31.6-35.5); Mean Corpuscular Hemoglobin 31.3 pg (28.0-33.3); Mean Corpuscular Volume 93.3 fL (83.0-100.0); Mean Platelet Volume 9.1 fL (9.4-12.4); Monocytes # 1.3 K/mcL (0.0-1.3); Neutrophils # 7.1 K/mcL (1.6-8.9); Platelet Count 165 K/mcL (140-400); Red Blood Count 3.58 M/mcL (4.19-5.50); Red Cell Distribution Width 12.1 % (11.5-14.5); Segmented Neutrophils % 77.1 %
[2017-03-27 05:10] LABS: BUN/Creatinine Ratio 8 (6-26); Blood Urea Nitrogen 7 mg/dL (8-26); Calcium 8.4 mg/dL (8.6-10.8); Carbon Dioxide 26 mEq/L (19-29); Chloride 104 mEq/L (98-109); Glucose 144 mg/dL (70-99); Osmolality,Calculated 287 (280-300); Potassium 3.7 mEq/L (3.5-4.5); Sodium 138 mEq/L (136-145); eGFR For African Americans > 60 (> 60); eGFR For Non-African Americans > 60 (> 60)
--- NOTE | 2017-03-27 07:24 | Urology Progress Note ---
Date of Encounter: 03/27/17 Time of Encounter: 07:22 - Assessment and Plan (1) Right kidney mass Current Visit: No Status: Acute Assessment and plan: Status post right robotic partial nephrectomy. Postoperative day #2. 1. I will repeat an H and H at 1300 today. 2. Continue ambulation. 3. Diabetic diet. 4. Oral pain medication for pain control. 5. Anticipate discharge home later today with drain removal. Progress Note Narrative: Postop day #2 status post right robotic partial nephrectomy. Drain output has been stable. His hemoglobin drifted down from 12.1-11.2 today. He is making good urine output. He is passing gas and tolerating soft diet. Objective Initial Vital Signs Temp Pulse Resp BP Pulse Ox 98.0 F 87 18 153/95 95 03/25/17 06:55 03/25/17 06:55 03/25/17 06:55 03/25/17 06:55 03/25/17 06:55 - General physical appearance Present: well developed, well nourished, no distress - Respiratory Present: normal respiratory effort (Mildly distended. Incisions are clean and dry and intact. Drain is now more serosanguineous.) - Labs 03/27/17 04:06 03/27/17 04:06 Diabetes panel 03/27/17 Range/Units 04:06 Sodium 138 (136-145) mEq/L Potassium 3.7 (3.5-4.5) mEq/L Chloride 104 (98-109) mEq/L Carbon Dioxide 26 (19-29) mEq/L BUN 7 L (8-26) mg/dL Creatinine 0.87 (0.72-1.25) mg/dL Glucose 144 H (70-99) mg/dL Calcium 8.4 L (8.6-10.8) mg/dL Calcium panel 03/27/17 Range/Units 04:06 Calcium 8.4 L (8.6-10.8) mg/dL Pituitary panel 03/27/17 Range/Units 04:06 Sodium 138 (136-145) mEq/L Potassium 3.7 (3.5-4.5) mEq/L Chloride 104 (98-109) mEq/L Carbon Dioxide 26 (19-29) mEq/L BUN 7 L (8-26) mg/dL Creatinine 0.87 (0.72-1.25) mg/dL Glucose 144 H (70-99) mg/dL Calcium 8.4 L (8.6-10.8) mg/dL Adrenal panel 03/27/17 Range/Units 04:06 Sodium 138 (136-145) mEq/L Potassium 3.7 (3.5-4.5) mEq/L Chloride 104 (98-109) mEq/L Carbon Dioxide 26 (19-29) mEq/L BUN 7 L (8-26) mg/dL Creatinine 0.87 (0.72-1.25) mg/dL Glucose 144 H (70-99) mg/dL Calcium 8.4 L (8.6-10.8) mg/dL - VTE Documentation of Mechanical Device: Intermittent pneumatic compression device Consult Discharge Plan - Plan Referrals: Bob Reyes MD [Partnered Physician] - Yari Apple CNP [Primary Care Provider] -
[2017-03-27] MEDS: Gabapentin 300 MG CAPSULE PO SCH ×2 (08:27→14:26)
[2017-03-27] MEDS: *HR* OxyCODONE Immed Rel 5 MG TABLET PO PRN ×3 (08:27→18:27)
[2017-03-27] MEDS: ceFAZolin 2,000 MG in D5% in Water 100 ML IVPB SCH ×2 (08:33→17:21)
[2017-03-27] MEDS: Insulin LISPRO 300 UNITS/3 ML VIAL SQ SCH ×3 (08:36→17:18)
[2017-03-27 13:09] LABS: Hematocrit 35.2 % (37.5-50.1)
[2017-03-27 15:18] VITALS: BP 147/78
--- NOTE | 2017-03-27 18:03 | Discharge Summary ---
Date of Encounter: 03/27/17 Time of Encounter: 18:00 - Discharge Diagnosis (1) Right kidney mass Priority: Primary Status: Acute - Discharge Medications Prescriptions: Docusate [Colace] 100 mg PO BID #60 capsule Oxycodone HCl/Acetaminophen [Percocet 5-325 mg Tablet] 1 each PO Q6H PRN #25 tablet PRN Reason: Pain Home Medications: ALPRAZolam [Xanax 0.5 MG Tablet] 0.5 mg PO QID PRN 09/05/16 [History] Fenofibrate Nanocrystallized [Fenofibrate] 145 mg PO DAILY 09/05/16 [History] Gabapentin 900 mg PO TID 09/05/16 [History] HYDROcodone/Acet 5/325 mg [[place] 5-325 mg] 1 - 2 tab PO Q6H PRN 09/05/16 [ History] Lisinopril [Zestril] 10 mg PO DAILY 09/05/16 [History] Loratadine [Allergy Relief] 10 mg PO DAILY PRN 09/05/16 [History] Metformin HCl [Metformin HCl ER] 1,500 mg PO HS 09/05/16 [History] Simvastatin 80 mg PO DAILY 09/05/16 [History] Tamsulosin [Flomax] 0.4 mg PO DAILY 09/05/16 [History] traZODone [TraZODone] 100 mg PO HS 09/05/16 [History] Ferrous Sulfate [Iron] 325 mg PO BID #60 tablet 10/15/16 [Rx] Omeprazole [PriLOSEC] 20 mg PO DAILY 03/25/17 [History] Docusate [Colace] 100 mg PO BID #60 capsule 03/27/17 [Rx] Oxycodone HCl/Acetaminophen [Percocet 5-325 mg Tablet] 1 each PO Q6H PRN #25 tablet 03/27/17 [Rx] Allergies/Adverse Reactions: 3 Allergy/AdvReac Type Severity Reaction Status Date / Time pregabalin [From Lyrica] AdvReac Dizziness Verified 03/25/17 07:15 sucralfate [From Carafate] AdvReac Dizziness Verified 03/25/17 07:15 Labs on day of discharge: Labs from last 24 hours 03/27/17 03/27/17 03/27/17 17:06 12:59 11:35 WBC RBC Hgb 12.0 L Hct 35.2 L MCV MCH MCHC RDW Plt Count MPV Immature Gran % Seg Neutrophils % Lymphocytes % Monocytes % Eosinophils % Basophils % Neutrophils # Lymphocytes # Monocytes # Eosinophils # Basophils # Sodium Potassium Chloride Carbon Dioxide BUN Creatinine Est GFR ( Amer) Est GFR (Non-Af Amer) BUN/Creatinine Ratio Glucose POC Glucose 149 H 206 H Calculated Osmolality Calcium 03/27/17 03/27/17 03/27/17 10:49 08:34 05:11 WBC RBC Hgb Hct MCV MCH MCHC RDW Plt Count MPV Immature Gran % Seg Neutrophils % Lymphocytes % Monocytes % Eosinophils % Basophils % Neutrophils # Lymphocytes # Monocytes # Eosinophils # Basophils # Sodium Potassium Chloride Carbon Dioxide BUN Creatinine Est GFR ( Amer) Est GFR (Non-Af Amer) BUN/Creatinine Ratio Glucose POC Glucose 228 H 172 H 190 H Calculated Osmolality Calcium 03/27/17 03/27/17 03/26/17 04:06 04:06 23:13 WBC 9.3 RBC 3.58 L Hgb 11.2 L Hct 33.4 L MCV 93.3 MCH 31.3 MCHC 33.5 RDW 12.1 Plt Count 165 MPV 9.1 L Immature Gran % 0.3 Seg Neutrophils % 77.1 Lymphocytes % 8.3 Monocytes % 14.0 Eosinophils % 0.1 Basophils % 0.2 Neutrophils # 7.1 Lymphocytes # 0.8 Monocytes # 1.3 Eosinophils # 0.0 Basophils # 0.0 Sodium 138 Potassium 3.7 Chloride 104 Carbon Dioxide 26 BUN 7 L Creatinine 0.87 Est GFR ( Amer) > 60 Est GFR (Non-Af Amer) > 60 BUN/Creatinine Ratio 8 Glucose 144 H POC Glucose 142 H Calculated Osmolality 287 Calcium 8.4 L Date of admission: 03/25/17 14:20 Primary care physician: Yari Apple CNP Consults: 03/26/17 07:46 Consult to Occupational Therapy [CONS] Routine Comment: Evaluate, develop and implement POC Reason for Consult: assist with post op needs. Consult to Physical Therapy [CONS] Routine Comment: Evaluate, develop and implement POC Reason for Consult: assist with ambulation. Discharging clinician: Bob Reyes Anticipated date of discharge: 03/27/17 - Patient Status Disposition: Home, Self-Care Condition: Good Functional capacity at discharge: independent ambulation Overall status at discharge: patient is progressing back to baseline - Discharge Instructions Follow Up With: Bob Reyes MD [Partnered Physician] - (2 weeks for postoperative check.) Additional Instructions: 1. No heavy lifting greater than 20 pounds x2 weeks. 2. No tub baths x2 weeks. 3. May shower. 4. He should follow up in 2 weeks for postoperative check. 5. He should return for any fevers, chills, nausea, vomiting, or significant swelling/ecchymosis. 6. He should monitor for any hematuria. 7. He should hold any blood thinners for 2 weeks. - Diet and Activity Activity: increase activity as tolerated Diet: advance to your usual diet - Hospital Course Hospital course: Mr. Dasilva is a 61 year old male who underwent a right robotic partial nephrectomy on March 25, 2017 for a right renal mass. He did well postoperatively. His hematocrit was stable by postoperative day #2. He was passing gas. His pain was well-controlled. His drain output had lessened. His drain was removed and he was discharged home. - Time Spent with Patient Total time spent providing and/or coordinating discharge services: Less than 30 minutes Exam Initial Vital Signs Temp Pulse Resp BP Pulse Ox 98.0 F 87 18 153/95 95 03/25/17 06:55 03/25/17 06:55 03/25/17 06:55 03/25/17 06:55 03/25/17 06:55 - General physical appearance Present: well developed, well nourished, no distress - Eyes Absent: icteric - ENT Present: normal nares - Neck Present: trachea midline - Respiratory Present: normal respiratory effort - Cardiovascular Cardiovascular exam IM: RRR - Abdomen Abdomen: Present: soft (Abdomen was soft. Incisions were clean dry and intact.) - VTE Documentation of Mechanical Device: Intermittent pneumatic compression device
[2017-03-27] MEDS ORDERED: FLUARIX QUAD 2017-18 36MOS UP/PF 0.5 ML SYRINGE IM ONE (18:18)
== END 2017-03-27 18:32 | disposition home or self-care (01) | DRG 661 ==
LOC: SAMDAY 06:27 → 3ANU 14:20
PROVIDERS: ADMIT Urology; ATTEND Urology